=== PATIENT | male | born 1960 | race Caucasian/White ===

== ENCOUNTER 2021-03-11 08:46 | Observation (INO) | payer OTHER ==
[~2021-03-11] VITALS: Ht 177.8 cm; Wt 71.2 kg
[2021-03-11] MEDS ORDERED: ONDANSETRON HCL INJ 2MG/ML 2ML 2 MG/ML VIAL IV STA (09:00)
[2021-03-11] MEDS ORDERED: SODIUM CHLORIDE 0.9% 1000ML 1,000 ML IV STA ×2 (09:00→10:38)
[2021-03-11] MEDS ORDERED: Morphine 4mg Syringe 4 MG/ML INJ IV STA (09:00)
[2021-03-11 09:15] LABS: BASOPHILS # (AUTO) 0.1 (0.0-0.1); BASOPHILS % 0.3 % (0.0-1.0); EOSINOPHILS # (AUTO) 0.1 (0.0-0.4); EOSINOPHILS % 0.3 % (0.0-6.0); HEMATOCRIT 48.3 % (38.2-49.6); HEMOGLOBIN 15.7 g/dL (14.0-18.0); LYMPHOCYTES # (AUTO) 2.4 (1.0-3.2); LYMPHOCYTES % 10.4 % (18.0-39.1); MEAN CORPUSCULAR HEMOGLOBIN 30.9 pg (28-32); MEAN CORPUSCULAR HGB CONC 32.5 g/dL (31-35); MEAN CORPUSCULAR VOLUME 95.1 fL (81-99); MONOCYTES # (AUTO) 1.2 (0.2-0.8); MONOCYTES % 5.4 % (4.4-11.3); NEUTROPHILS # (AUTO) 19.2 (2.1-6.9); NEUTROPHILS % 82.8 % (38.7-80.0); PLATELET COUNT 279 x10e3/uL (140-360); RED BLOOD COUNT 5.08 x10e6/uL (4.3-5.7); RED CELL DISTRIBUTION WIDTH 13.6 % (11.7-14.4)
[2021-03-11 09:26] LABS: INR 0.98; PROTHROMBIN TIME 13.4 seconds (11.9-14.5)
[2021-03-11 09:27] LABS: PARTIAL THROMBOPLASTIN TIME 25.6 seconds (23.8-35.5)
[2021-03-11 09:38] LABS: ALBUMIN 4.4 g/dL (3.5-5.0); ALBUMIN/GLOBULIN RATIO 1.5 (0.8-2.0); ANION GAP 18.8 mmol/L (8-16); CALCIUM 9.7 mg/dL (8.4-10.2); CREATININE, SERUM 0.85 mg/dL (0.72-1.25); MAGNESIUM 1.7 MG/DL (1.3-2.1); POTASSIUM 3.8 mmol/L (3.5-5.1)
[2021-03-11 10:05] LABS: CREATINE KINASE MB 1.4 ng/mL (0-5.0)
[2021-03-11] MEDS ORDERED: PIPERACILLIN/TAZO 4.5 GM 100 ML IV ONE (10:15)
[2021-03-11 11:24] LABS: CLARITY,URINE CLEAR (CLEAR); COLOR,URINE YELLOW (YELLOW)
[2021-03-11 11:25] LABS: KETONES,URINE NEGATIVE (NEGATIVE); LEUKOCYTE ESTERASE ,URINE NEGATIVE (NEGATIVE); NITRITE,URINE NEGATIVE (NEGATIVE); PROTEIN,URINE DIPSTICK NEGATIVE (NEGATIVE); URINE UROBILINOGEN 0.2 mg/dL (0.2 - 1)
[2021-03-11] MEDS ORDERED: SODIUM CHLORIDE 0.9% 1000ML 1,000 ML IV SCH (11:30)
[2021-03-11] MEDS ORDERED: ONDANSETRON HCL INJ 2MG/ML 2ML 2 MG/ML VIAL IV PRN (11:30)
[2021-03-11] MEDS ORDERED: Morphine 4mg Syringe 4 MG/ML INJ IV PRN (11:30)
[2021-03-11 11:53] LABS: BACTERIA,URINE FEW /HPF; EPITHELIAL CELLS,URINE FEW /LPF
[2021-03-11] MEDS ORDERED: BUPIVACAINE HCL 0.5% INJ 30 ML VIAL INJ ONE (13:00)
[2021-03-11] MEDS ORDERED: SODIUM CHLORIDE 0.9% 50ML 50 ML ONE (13:49)
[2021-03-11] MEDS ORDERED: IOPAMIDOL 370 MG/ML 200 ML INFUS..BTL INJ ONE (13:49)
[2021-03-11] MEDS ORDERED: ACETAMINOPHEN 325 MG TAB PO PRN (14:30)
[2021-03-11 15:21] VITALS: BP 116/76
[2021-03-11 15:24] VITALS: BP 116/76
[2021-03-11 15:26] VITALS: BP 116/76
[2021-03-11] MEDS: DEXTROSE 5%/0.45% SOD CHL 1,000 ML IV SCH (15:52)
[2021-03-11] MEDS: PIPERACILLIN/TAZOBACTAM 3.375 GM in SODIUM CHLORIDE 0.9% 50ML 50 ML IV SCH (17:29)
[2021-03-11] MEDS: HYDROCODONE/APAP 5MG-325MG TAB PO PRN (17:29)
[2021-03-11] MEDS ORDERED: PIPERACILLIN/TAZOBACTAM 4.5 GM in SODIUM CHLORIDE 0.9% 100 ML IV SCH (18:00)
[2021-03-11] MEDS: HYDROMORPHONE 1MG/1ML INJ IV PRN ×2 (19:50→23:04)
[2021-03-11] MEDS: ONDANSETRON HCL INJ 2MG/ML 2ML 2 MG/ML VIAL IV PRN (19:50)
[2021-03-11 20:00] VITALS: BP 112/65
[2021-03-12] VITALS: BP 108/70
[2021-03-12 04:00] VITALS: BP 96/58
[2021-03-12] MEDS: DEXTROSE 5%/0.45% SOD CHL 1,000 ML IV SCH ×3 (04:11→20:30)
[2021-03-12] MEDS: HYDROMORPHONE 1MG/1ML INJ IV PRN ×4 (04:11→19:55)
[2021-03-12] MEDS: PIPERACILLIN/TAZOBACTAM 3.375 GM in SODIUM CHLORIDE 0.9% 50ML 50 ML IV SCH ×5 (06:03→17:10)
[2021-03-12 06:29] LABS: BASOPHILS % 0.2 % (0.0-1.0); HEMATOCRIT 39.1 % (38.2-49.6); HEMOGLOBIN 12.9 g/dL (14.0-18.0); LYMPHOCYTES # (AUTO) 0.8 (1.0-3.2); LYMPHOCYTES % 3.3 % (18.0-39.1); MEAN CORPUSCULAR HEMOGLOBIN 31.2 pg (28-32); MEAN CORPUSCULAR VOLUME 94.7 fL (81-99); MONOCYTES % 3.9 % (4.4-11.3); NEUTROPHILS # (AUTO) 22.6 (2.1-6.9); NEUTROPHILS % 91.6 % (38.7-80.0); PLATELET COUNT 189 x10e3/uL (140-360); RED BLOOD COUNT 4.13 x10e6/uL (4.3-5.7); RED CELL DISTRIBUTION WIDTH 13.7 % (11.7-14.4)
[2021-03-12 06:44] LABS: ALBUMIN 3.1 g/dL (3.5-5.0); ALBUMIN/GLOBULIN RATIO 1.5 (0.8-2.0); ANION GAP 13.9 mmol/L (8-16); CALCIUM 8.8 mg/dL (8.4-10.2); CREATININE, SERUM 0.89 mg/dL (0.72-1.25); POTASSIUM 4.9 mmol/L (3.5-5.1)
[2021-03-12 07:45] LABS: BAND NEUTROPHILS % (MANUAL) 1 %; LYMPHOCYTES % (MANUAL) 4 % (19-48); MONOCYTES % (MANUAL) 1 % (3.4-9.0); NEUTROPHILS % (MANUAL) 94 % (40-74)
[2021-03-12 07:46] LABS: PLATELET ESTIMATE ADEQUATE; PLATELET MORPHOLOGY COMMENT NORMAL; RBC MORPHOLOGY COMMENT NORMAL
[2021-03-12 07:54] VITALS: BP 105/59
[2021-03-12 08:16] VITALS: BP 138/67
[2021-03-12] MEDS: HYDROCODONE/APAP 5MG-325MG TAB PO PRN ×2 (16:16→23:58)
[2021-03-12] MEDS: ONDANSETRON HCL INJ 2MG/ML 2ML 2 MG/ML VIAL IV PRN (19:53)
[2021-03-12 20:00] VITALS: BP 116/59
[2021-03-13] VITALS: BP 113/74
[2021-03-13] MEDS: PIPERACILLIN/TAZOBACTAM 3.375 GM in SODIUM CHLORIDE 0.9% 50ML 50 ML IV SCH ×3 (00:22→11:42)
[2021-03-13 04:00] VITALS: BP 115/77
[2021-03-13] MEDS ORDERED: BISACODYL 10 MG SUPP PR ONE (06:00)
[2021-03-13] MEDS ORDERED: SODIUM CHLORIDE FLUSH 10 ML SYR INJ PRN (06:00)
[2021-03-13] MEDS ORDERED: MAGNESIUM HYDROXIDE 30 ML UDC PO ONE (06:00)
[2021-03-13 08:39] VITALS: BP 105/64
[2021-03-13 09:44] VITALS: BP 105/64
[2021-03-13] MEDS: HYDROCODONE/APAP 5MG-325MG TAB PO PRN (11:00)
[2021-03-13 12:52] VITALS: BP 121/78
[2021-03-13 16:06] VITALS: BP 102/64
== END 2021-03-13 17:20 | disposition home or self-care (01) ==
LOC: ER 09:16 → INTOOBSV 11:44 → ERHOLD 11:44 → MED/SURG 15:26
PROVIDERS: ADMIT Surgery; ATTEND Surgery
DX: K35.80 Unspecified acute appendicitis (principal); F17.210 Nicotine dependence, cigarettes, uncomplicated; Z20.822 Contact with and (suspected) exposure to COVID-19; F41.9 Anxiety disorder, unspecified; F90.9 Attention-deficit hyperactivity disorder, unspecified type
CPT/HCPCS: 36415 ×2; 44970; 74177; 80053 ×2; 81001; 82550; 82553; 83605; 83690; 83735; 84484; 85025 ×2; 85610; 85730; 87040; 87071; 87086; 87205; 88304; 93005; 96360; 99284; C9113; G0378 ×3; J1170 ×3; J2270; J2405 ×2; J2543 ×4; J7030; Q9967; U0002